=== PATIENT | female | born 1960 | race African-American/Black ===

== ENCOUNTER 2019-03-03 11:05 | Emergency (ER) | payer OTHER ==
[~2019-03-03] VITALS: Ht 157.5 cm; Wt 77.3 kg
[2019-03-03] MEDS ORDERED: KETOROLAC TROMETHAMINE 60 MG/2 ML VIAL IM ONE (13:00)
[2019-03-03] MEDS: METHOCARBAMOL 500 MG TABLET PO ONE ×2 (13:08→13:14)
[2019-03-03 13:39] VITALS: BP 122/70
== END 2019-03-03 14:21 | disposition home or self-care (01) ==
LOC: EMS 11:05
DX: S13.4XXA Sprain of ligaments of cervical spine, initial encounter (principal); S39.012A Strain of muscle, fascia and tendon of lower back, initial encounter; S90.31XA Contusion of right foot, initial encounter; V49.9XXA Car occupant (driver) (passenger) injured in unspecified traffic accident, initial encounter; Y93.89 Activity, other specified; Y92.89 Other specified places as the place of occurrence of the external cause; Y99.8 Other external cause status
CPT/HCPCS: 73630; 96372; 99283; J1885